=== PATIENT | female | born 1945 | race Caucasian/White ===

== ENCOUNTER → 2017-12-10 | Outpatient (CLI) | payer MEDICARE | END | disposition home or self-care (01) | LOC: CVU 07:47 | PROVIDERS: ATTEND Internal Medicine Cardiovascular Disease | DX: I65.23 Occlusion and stenosis of bilateral carotid arteries (principal); I67.9 Cerebrovascular disease, unspecified; I10 Essential (primary) hypertension; E78.5 Hyperlipidemia, unspecified | CPT/HCPCS: 93880 ==

== ENCOUNTER → 2020-06-08 | Outpatient (CLI) | payer MEDICARE | END | disposition home or self-care (01) | LOC: CFH 10:56 | PROVIDERS: ATTEND Internal Medicine | DX: Z12.31 Encounter for screening mammogram for malignant neoplasm of breast (principal); M81.0 Age-related osteoporosis without current pathological fracture | CPT/HCPCS: 77063; 77067; 77080 ==

== ENCOUNTER 2021-02-08 09:47 | Outpatient (CLI) | payer MEDICARE | END 2021-02-08 23:59 | disposition home or self-care (01) | LOC: LAB 09:47 | PROVIDERS: ATTEND Internal Medicine | DX: M81.0 Age-related osteoporosis without current pathological fracture (principal) ==